=== PATIENT | male | born 1935 | race Caucasian/White ===

== ENCOUNTER 2022-03-10 23:04 | Emergency (ER) | payer OTHER ==
[2022-03-10] MEDS ORDERED: ACETAMINOPHEN 500 MG TABLET (FP) PO ONE (23:27)
[2022-03-10] MEDS ORDERED: ACETAMINOPHEN 325 MG TABLET (FP) PO ONE (23:28)
[2022-03-10] MEDS ORDERED: ACETAMINOPHEN 325 MG TABLET (FP) ONE (23:29)
[2022-03-10 23:40] VITALS: BMI 26.2
[2022-03-10] MEDS ORDERED: LIDOCAINE HCL 2% JELLY (5 ML/TUBE) ONE (23:40)
[2022-03-11 01:32] LABS: EPI CELLS 1 /uL (0-25.1); HYALINE CASTS 0 /uL (0-3.1); URINE APPEARANCE CLOUDY; URINE BACTERIA 874 /uL (0-1359); URINE BILIRUBIN NEGATIVE (NEGATIVE); URINE COLOR YELLOW; URINE GLUCOSE (UA) NEGATIVE (NEGATIVE); URINE KETONE NEGATIVE (NEGATIVE); URINE LEUK ESTERASE 3+ (NEGATIVE); URINE NITRITE NEGATIVE (NEGATIVE); URINE PROTEIN 1+ (NEGATIVE); URINE UROBILINOGEN 0.2 mg/dL (0.2-1.0); URINE WBC 1379 /uL (0-25.8)
[2022-03-11 03:53] VITALS: BP 92/65; PULSE 84; TEMP 98.6
[2022-03-11 03:58] LABS: URINE RBC 159 /uL (0-23.9); YEAST MODERATE (NEGATIVE)
== END 2022-03-11 04:28 ==
LOC: FER 23:04
DX: T83.018A Breakdown (mechanical) of other urinary catheter, initial encounter (principal)
CPT/HCPCS: 81003; 87086; 87186; 99283-25

== ENCOUNTER 2022-04-03 14:09 | Inpatient (IN) | payer OTHER, BC ==
[2022-04-03] MEDS ORDERED: ACETAMINOPHEN 1000 MG/100 ML BAG IVPB ONE (15:50)
[2022-04-03] MEDS ORDERED: ACETAMINOPHEN 325 MG TABLET (FP) ONE (15:51)
[2022-04-03] MEDS ORDERED: ACETAMINOPHEN INJECTION 100 ML IVPB ONE (15:52)
[2022-04-03] MEDS ORDERED: morphine CARPU-JECT 4 MG/1 ML DISP.SYRIN IVPUSH ONE (17:30)
[2022-04-03] MEDS ORDERED: morphine SULFATE 4 MG/ML VIAL ONE (17:34)
[2022-04-03 17:42] LABS: BASO % 0.3 % (0-2.0); EOS % 1.1 % (0-4.5); HEMOGLOBIN 11.6 GM/dL (11.7-16.9); MCH 28.2 pg (25.7-33.7); MCHC 33.2 g/dl (32.0-35.9); MEAN CELL VOLUME 84.8 fl (80-96); MEAN PLT VOLUME 7.4 fl (7.5-11.1); MONO % 10.6 % (3.8-10.2); PLATELET COUNT 181 10^3/uL (134-434); RBC 4.13 M/mm3 (4.00-5.60); RDW 21.9 % (11.9-15.9)
[2022-04-03 18:00] LABS: INR 1.05 (0.83-1.09); PROTHROMBIN TIME (PATIENT) 12.1 SEC (9.7-13.0)
[2022-04-03 18:03] LABS: ACTIVATED PTT 29.8 SECONDS (25.2-36.5)
[2022-04-03 18:11] LABS: ALBUMIN 3.4 g/dl (3.4-5.0); BLOOD UREA NITROGEN 30.1 mg/dL (7-18)
[2022-04-03 18:14] LABS: CREATININE 1.4 mg/dL (0.55-1.3)
[2022-04-03 18:16] LABS: BILIRUBIN,TOTAL 0.6 mg/dL (0.2-1); TOT PROT 7.2 g/dl (6.4-8.2)
[2022-04-03] MEDS ORDERED: SODIUM CHLORIDE 1,000 ML IV SCH (18:30)
[2022-04-03] MEDS ORDERED: CEFTRIAXONE 1,000 MG in DEXTROSE 5%-WATER - 50 ML IVPB ONE (18:31)
[2022-04-03] MEDS ORDERED: CEFTRIAXONE 1 GM/50 ML BAG ONE (18:38)
[2022-04-03 19:06] LABS: ANISOCYTOSIS 1+; MACROCYTOSIS 0
[2022-04-03 20:49] LABS: PH,URINE 8.5 (5.0-8.0); URINE APPEARANCE Turbid; URINE BILIRUBIN 3+ (NEGATIVE); URINE COLOR Other; URINE GLUCOSE (UA) Trace (NEGATIVE); URINE KETONE 3+ (NEGATIVE); URINE LEUK ESTERASE 3+ (NEGATIVE); URINE NITRITE Positive (NEGATIVE); URINE PROTEIN 3+ (NEGATIVE); URINE UROBILINOGEN >=8.0 E.U./dl mg/dL (0.2-1.0)
[2022-04-03] MEDS ORDERED: NITROGLYCERIN SUBLINGUAL 1/150 0.4 MG TAB SL PRN (23:10)
[2022-04-04 03:05] VITALS: BMI 26.0
[2022-04-04] MEDS ORDERED: VANCOMYCIN/WATER 1,250 MG/250 ML BAG IVPB SCH (03:45)
[2022-04-04] MEDS ORDERED: PIPERACILLIN/TAZOB 3.375 GM 3.375 GM in DEXTROSE 5%-WATER - 50 ML IVPB SCH ×2 (04:00→10:00)
[2022-04-04] MEDS ORDERED: VANCOMYCIN/WATER 1250 MG 1,250 MG/250 ML BAG IVPB SCH (04:00)
[2022-04-04] MEDS ORDERED: PIPERACILLIN/TAZOBACTAM 3.375 GM VIAL IVPB ONE ×3 (05:32→20:55)
[2022-04-04] MEDS ORDERED: DEXTROSE 5%-WATER - 50 ML IVPB ONE ×3 (05:32→20:55)
[2022-04-04] MEDS ORDERED: LEVOTHYROXINE NA 112 MCG TABLET (FP) ONE (06:19)
[2022-04-04] MEDS ORDERED: LEVOTHYROXINE NA 25 MCG TABLET (FP) ONE (06:19)
[2022-04-04] MEDS: LEVOTHYROXINE 112 MCG, LEVOTHYROXINE 25 MCG PO SCH (06:20)
[2022-04-04] MEDS: SODIUM CHLORIDE 1,000 ML IV SCH ×3 (06:21→22:53)
[2022-04-04] MEDS: TAMSULOSIN HCL 0.4 MG CAP PO SCH (08:21)
[2022-04-04] MEDS ORDERED: LEVOTHYROXINE NA 75 MCG TABLET (FP) PO SCH (10:00)
[2022-04-04] MEDS ORDERED: ASPIRIN 81 MG CHEWABLE TABLETS PO SCH (10:00)
[2022-04-04] MEDS: CHOLECALCIFEROL (VIT D3) 1,000 UNIT (25 MCG) TABLET PO SCH (10:24)
[2022-04-04] MEDS: FINASTERIDE 5 MG TABLET (FP) PO SCH (10:24)
[2022-04-04] MEDS: POLYETHYLENE GLYCOL (HEALTHYLAX) 3350 17 GM PACKET PO SCH (10:24)
[2022-04-04] MEDS: FOLIC ACID 1 MG TABLET (FP) PO SCH (10:24)
[2022-04-04 10:57] LABS: BASO % 0.4 % (0-2.0); EOS % 1.7 % (0-4.5); HEMATOCRIT 30.4 % (35.4-49); HEMOGLOBIN 10.1 GM/dL (11.7-16.9); LYMPH % 7.1 % (8-40); MCH 28.1 pg (25.7-33.7); MCHC 33.2 g/dl (32.0-35.9); MEAN CELL VOLUME 84.6 fl (80-96); MEAN PLT VOLUME 7.4 fl (7.5-11.1); NEUT % 79.8 % (42.8-82.8); PLATELET COUNT 167 10^3/uL (134-434); RBC 3.59 M/mm3 (4.00-5.60); RDW 22.2 % (11.9-15.9); WHITE BLOOD COUNT 8.4 K/mm3 (4.0-10.0)
[2022-04-04] MEDS: AMIODARONE HCL 200 MG TABLET PO SCH (11:12)
[2022-04-04] MEDS: CYANOCOBALAMIN 1,000 MCG TABLET (FP) PO SCH (11:12)
[2022-04-04 11:27] LABS: CALCIUM 8.7 mg/dL (8.5-10.1)
[2022-04-04 11:28] LABS: ALBUMIN 2.8 g/dl (3.4-5.0); BLOOD UREA NITROGEN 26.4 mg/dL (7-18); MAGNESIUM 2.2 mg/dL (1.8-2.4)
[2022-04-04 11:29] LABS: BILIRUBIN,TOTAL 0.6 mg/dL (0.2-1); TOT PROT 6.2 g/dl (6.4-8.2)
[2022-04-04 11:31] LABS: CREATININE 1.4 mg/dL (0.55-1.3); PHOSPHOROUS 3.6 mg/dL (2.5-4.9)
[2022-04-04] MEDS: PIPERACILLIN/TAZOB 3.375 GM 3.375 GM in DEXTROSE 5%-WATER - 50 ML IVPB SCH ×2 (14:17→21:19)
[2022-04-04] MEDS ORDERED: CEFTRIAXONE 1 GM in DEXTROSE 5%-WATER - 50 ML IVPB SCH (18:30)
[2022-04-04] MEDS: MELATONIN 5 MG TABLETS PO SCH (21:22)
[2022-04-04] MEDS: ATORVASTATIN CA 40 MG TABLET (FP) PO SCH (21:22)
[2022-04-04] MEDS: FAMOTIDINE 20 MG TABLET PO SCH (21:22)
[2022-04-05] MEDS ORDERED: LEVOTHYROXINE NA 25 MCG TABLET (FP) ONE (05:11)
[2022-04-05] MEDS ORDERED: LEVOTHYROXINE NA 112 MCG TABLET (FP) ONE (05:11)
[2022-04-05] MEDS ORDERED: PIPERACILLIN/TAZOBACTAM 3.375 GM VIAL IVPB ONE ×3 (05:12→22:30)
[2022-04-05] MEDS ORDERED: DEXTROSE 5%-WATER - 50 ML IVPB ONE ×3 (05:12→22:30)
[2022-04-05] MEDS: PIPERACILLIN/TAZOB 3.375 GM 3.375 GM in DEXTROSE 5%-WATER - 50 ML IVPB SCH ×3 (05:27→22:34)
[2022-04-05] MEDS: LEVOTHYROXINE 112 MCG, LEVOTHYROXINE 25 MCG PO SCH (06:24)
[2022-04-05] MEDS: FOLIC ACID 1 MG TABLET (FP) PO SCH (10:39)
[2022-04-05] MEDS: FINASTERIDE 5 MG TABLET (FP) PO SCH (10:39)
[2022-04-05] MEDS: CHOLECALCIFEROL (VIT D3) 1,000 UNIT (25 MCG) TABLET PO SCH (10:39)
[2022-04-05] MEDS: TAMSULOSIN HCL 0.4 MG CAP PO SCH (10:39)
[2022-04-05] MEDS: AMIODARONE HCL 200 MG TABLET PO SCH (10:40)
[2022-04-05] MEDS: CYANOCOBALAMIN 1,000 MCG TABLET (FP) PO SCH (10:40)
[2022-04-05] MEDS: POLYETHYLENE GLYCOL (HEALTHYLAX) 3350 17 GM PACKET PO SCH (10:40)
[2022-04-05] MEDS: ACETAMINOPHEN 325 MG TABLET (FP) PO PRN (10:42)
[2022-04-05] MEDS: SODIUM CHLORIDE 1,000 ML IV SCH ×2 (13:28→22:32)
[2022-04-05] MEDS: MELATONIN 5 MG TABLETS PO SCH (22:33)
[2022-04-05] MEDS: ATORVASTATIN CA 40 MG TABLET (FP) PO SCH (22:33)
[2022-04-05] MEDS: FAMOTIDINE 20 MG TABLET PO SCH (22:34)
[2022-04-06] MEDS ORDERED: LEVOTHYROXINE NA 112 MCG TABLET (FP) ONE (06:03)
[2022-04-06] MEDS ORDERED: LEVOTHYROXINE NA 25 MCG TABLET (FP) ONE (06:03)
[2022-04-06] MEDS ORDERED: DEXTROSE 5%-WATER - 50 ML IVPB ONE ×3 (06:03→21:46)
[2022-04-06] MEDS ORDERED: PIPERACILLIN/TAZOBACTAM 3.375 GM VIAL IVPB ONE ×3 (06:03→21:46)
[2022-04-06] MEDS: LEVOTHYROXINE 112 MCG, LEVOTHYROXINE 25 MCG PO SCH (06:17)
[2022-04-06] MEDS: PIPERACILLIN/TAZOB 3.375 GM 3.375 GM in DEXTROSE 5%-WATER - 50 ML IVPB SCH ×3 (06:17→22:28)
[2022-04-06] MEDS: FOLIC ACID 1 MG TABLET (FP) PO SCH (09:39)
[2022-04-06] MEDS: TAMSULOSIN HCL 0.4 MG CAP PO SCH (09:39)
[2022-04-06] MEDS: AMIODARONE HCL 200 MG TABLET PO SCH (09:39)
[2022-04-06] MEDS: CHOLECALCIFEROL (VIT D3) 1,000 UNIT (25 MCG) TABLET PO SCH (09:39)
[2022-04-06] MEDS: CYANOCOBALAMIN 1,000 MCG TABLET (FP) PO SCH (09:39)
[2022-04-06] MEDS: POLYETHYLENE GLYCOL (HEALTHYLAX) 3350 17 GM PACKET PO SCH (09:40)
[2022-04-06] MEDS: FINASTERIDE 5 MG TABLET (FP) PO SCH (09:44)
[2022-04-06] MEDS: ACETAMINOPHEN 325 MG TABLET (FP) PO PRN (09:45)
[2022-04-06] MEDS: SODIUM CHLORIDE 1,000 ML IV SCH ×2 (14:11→22:09)
[2022-04-06] MEDS: MELATONIN 5 MG TABLETS PO SCH (22:07)
[2022-04-06] MEDS: ATORVASTATIN CA 40 MG TABLET (FP) PO SCH (22:08)
[2022-04-06] MEDS: FAMOTIDINE 20 MG TABLET PO SCH (22:08)
[2022-04-07] MEDS: ACETAMINOPHEN 325 MG TABLET (FP) PO PRN ×2 (03:56→10:10)
[2022-04-07] MEDS ORDERED: DEXTROSE 5%-WATER - 50 ML IVPB ONE ×3 (05:38→20:59)
[2022-04-07] MEDS ORDERED: PIPERACILLIN/TAZOBACTAM 3.375 GM VIAL IVPB ONE ×3 (05:38→20:59)
[2022-04-07] MEDS: PIPERACILLIN/TAZOB 3.375 GM 3.375 GM in DEXTROSE 5%-WATER - 50 ML IVPB SCH ×3 (06:05→21:20)
[2022-04-07] MEDS ORDERED: LEVOTHYROXINE NA 25 MCG TABLET (FP) ONE (06:07)
[2022-04-07] MEDS ORDERED: LEVOTHYROXINE NA 112 MCG TABLET (FP) ONE (06:07)
[2022-04-07] MEDS: LEVOTHYROXINE 112 MCG, LEVOTHYROXINE 25 MCG PO SCH (06:09)
[2022-04-07] MEDS: TAMSULOSIN HCL 0.4 MG CAP PO SCH (09:10)
[2022-04-07 10:01] LABS: BASO % 0.2 % (0-2.0); EOS % 3.3 % (0-4.5); HEMATOCRIT 30.7 % (35.4-49); HEMOGLOBIN 10.1 GM/dL (11.7-16.9); LYMPH % 7.3 % (8-40); MEAN CELL VOLUME 84.9 fl (80-96); MEAN PLT VOLUME 7.6 fl (7.5-11.1); MONO % 11.2 % (3.8-10.2); PLATELET COUNT 193 10^3/uL (134-434); RBC 3.61 M/mm3 (4.00-5.60); RDW 21.8 % (11.9-15.9); WHITE BLOOD COUNT 9.9 K/mm3 (4.0-10.0)
[2022-04-07] MEDS: CHOLECALCIFEROL (VIT D3) 1,000 UNIT (25 MCG) TABLET PO SCH (10:10)
[2022-04-07] MEDS: FOLIC ACID 1 MG TABLET (FP) PO SCH (10:10)
[2022-04-07] MEDS: FINASTERIDE 5 MG TABLET (FP) PO SCH (10:10)
[2022-04-07] MEDS: CYANOCOBALAMIN 1,000 MCG TABLET (FP) PO SCH (10:11)
[2022-04-07] MEDS: AMIODARONE HCL 200 MG TABLET PO SCH (10:11)
[2022-04-07] MEDS: POLYETHYLENE GLYCOL (HEALTHYLAX) 3350 17 GM PACKET PO SCH (10:11)
[2022-04-07 10:23] LABS: ALBUMIN 2.8 g/dl (3.4-5.0); ANISOCYTOSIS 1+; BLOOD UREA NITROGEN 22.5 mg/dL (7-18); CALCIUM 8.6 mg/dL (8.5-10.1)
[2022-04-07 10:25] LABS: CREATININE 1.6 mg/dL (0.55-1.3)
[2022-04-07 10:27] LABS: BILIRUBIN,TOTAL 0.9 mg/dL (0.2-1); TOT PROT 6.5 g/dl (6.4-8.2)
[2022-04-07] MEDS: SODIUM CHLORIDE 1,000 ML IV SCH ×2 (15:35→22:30)
[2022-04-07] MEDS: MELATONIN 5 MG TABLETS PO SCH (21:21)
[2022-04-07] MEDS: ATORVASTATIN CA 40 MG TABLET (FP) PO SCH (21:21)
[2022-04-07] MEDS: FAMOTIDINE 20 MG TABLET PO SCH (21:21)
[2022-04-08] MEDS ORDERED: DEXTROSE 5%-WATER - 50 ML IVPB ONE ×3 (05:31→21:19)
[2022-04-08] MEDS ORDERED: PIPERACILLIN/TAZOBACTAM 3.375 GM VIAL IVPB ONE ×3 (05:31→21:19)
[2022-04-08] MEDS ORDERED: LEVOTHYROXINE NA 112 MCG TABLET (FP) ONE (05:32)
[2022-04-08] MEDS ORDERED: LEVOTHYROXINE NA 25 MCG TABLET (FP) ONE (05:32)
[2022-04-08] MEDS: PIPERACILLIN/TAZOB 3.375 GM 3.375 GM in DEXTROSE 5%-WATER - 50 ML IVPB SCH ×3 (05:35→21:40)
[2022-04-08] MEDS: LEVOTHYROXINE 112 MCG, LEVOTHYROXINE 25 MCG PO SCH (06:07)
[2022-04-08 08:43] LABS: BASO % 0.5 % (0-2.0); EOS % 2.8 % (0-4.5); HEMOGLOBIN 9.3 GM/dL (11.7-16.9); LYMPH % 8.6 % (8-40); MCH 27.8 pg (25.7-33.7); MCHC 33.1 g/dl (32.0-35.9); MEAN CELL VOLUME 84.2 fl (80-96); MEAN PLT VOLUME 7.4 fl (7.5-11.1); MONO % 13.8 % (3.8-10.2); NEUT % 74.3 % (42.8-82.8); PLATELET COUNT 193 10^3/uL (134-434); RBC 3.33 M/mm3 (4.00-5.60)
[2022-04-08] MEDS: TAMSULOSIN HCL 0.4 MG CAP PO SCH (09:19)
[2022-04-08] MEDS: FINASTERIDE 5 MG TABLET (FP) PO SCH (09:19)
[2022-04-08] MEDS: POLYETHYLENE GLYCOL (HEALTHYLAX) 3350 17 GM PACKET PO SCH (09:19)
[2022-04-08] MEDS: FOLIC ACID 1 MG TABLET (FP) PO SCH (09:19)
[2022-04-08] MEDS: CHOLECALCIFEROL (VIT D3) 1,000 UNIT (25 MCG) TABLET PO SCH (09:19)
[2022-04-08] MEDS: CYANOCOBALAMIN 1,000 MCG TABLET (FP) PO SCH (09:20)
[2022-04-08] MEDS: AMIODARONE HCL 200 MG TABLET PO SCH (09:20)
[2022-04-08 09:26] LABS: ALBUMIN 2.5 g/dl (3.4-5.0); BLOOD UREA NITROGEN 21.1 mg/dL (7-18); CALCIUM 8.4 mg/dL (8.5-10.1)
[2022-04-08 09:29] LABS: CREATININE 1.5 mg/dL (0.55-1.3)
[2022-04-08 09:31] LABS: BILIRUBIN,TOTAL 1.1 mg/dL (0.2-1)
[2022-04-08] MEDS: ASPIRIN 81 MG CHEWABLE TABLETS PO SCH (12:32)
[2022-04-08] MEDS: SODIUM CHLORIDE 1,000 ML IV SCH ×2 (17:52→20:57)
[2022-04-08] MEDS: FAMOTIDINE 20 MG TABLET PO SCH (21:41)
[2022-04-08] MEDS: MELATONIN 5 MG TABLETS PO SCH (21:41)
[2022-04-08] MEDS: ATORVASTATIN CA 40 MG TABLET (FP) PO SCH (21:41)
[2022-04-09] MEDS ORDERED: LEVOTHYROXINE NA 25 MCG TABLET (FP) ONE (05:09)
[2022-04-09] MEDS ORDERED: LEVOTHYROXINE NA 112 MCG TABLET (FP) ONE (05:10)
[2022-04-09] MEDS ORDERED: PIPERACILLIN/TAZOBACTAM 3.375 GM VIAL IVPB ONE ×2 (05:10→13:22)
[2022-04-09] MEDS ORDERED: DEXTROSE 5%-WATER - 50 ML IVPB ONE ×2 (05:10→13:22)
[2022-04-09] MEDS: PIPERACILLIN/TAZOB 3.375 GM 3.375 GM in DEXTROSE 5%-WATER - 50 ML IVPB SCH ×2 (05:28→13:27)
[2022-04-09] MEDS: LEVOTHYROXINE 112 MCG, LEVOTHYROXINE 25 MCG PO SCH (06:01)
[2022-04-09] MEDS: ASPIRIN 81 MG CHEWABLE TABLETS PO SCH (09:54)
[2022-04-09] MEDS: FINASTERIDE 5 MG TABLET (FP) PO SCH (09:54)
[2022-04-09] MEDS: FOLIC ACID 1 MG TABLET (FP) PO SCH (09:54)
[2022-04-09] MEDS: TAMSULOSIN HCL 0.4 MG CAP PO SCH (09:54)
[2022-04-09] MEDS: CHOLECALCIFEROL (VIT D3) 1,000 UNIT (25 MCG) TABLET PO SCH (09:54)
[2022-04-09] MEDS: AMIODARONE HCL 200 MG TABLET PO SCH (09:54)
[2022-04-09] MEDS: CYANOCOBALAMIN 1,000 MCG TABLET (FP) PO SCH (09:54)
[2022-04-09] MEDS: POLYETHYLENE GLYCOL (HEALTHYLAX) 3350 17 GM PACKET PO SCH (09:54)
[2022-04-09 10:47] LABS: BASO % 0.4 % (0-2.0); EOS % 2.9 % (0-4.5); HEMATOCRIT 30.3 % (35.4-49); HEMOGLOBIN 9.9 GM/dL (11.7-16.9); LYMPH % 7.2 % (8-40); MCH 27.5 pg (25.7-33.7); MCHC 32.5 g/dl (32.0-35.9); MEAN CELL VOLUME 84.6 fl (80-96); MEAN PLT VOLUME 7.1 fl (7.5-11.1); MONO % 12.3 % (3.8-10.2); NEUT % 77.2 % (42.8-82.8); PLATELET COUNT 211 10^3/uL (134-434); RBC 3.58 M/mm3 (4.00-5.60); RDW 21.7 % (11.9-15.9); WHITE BLOOD COUNT 9.1 K/mm3 (4.0-10.0)
[2022-04-09 11:09] LABS: ALBUMIN 2.4 g/dl (3.4-5.0); BLOOD UREA NITROGEN 20.5 mg/dL (7-18); CALCIUM 8.6 mg/dL (8.5-10.1)
[2022-04-09 11:12] LABS: CREATININE 1.4 mg/dL (0.55-1.3)
[2022-04-09 11:14] LABS: BILIRUBIN,TOTAL 0.6 mg/dL (0.2-1); TOT PROT 6.1 g/dl (6.4-8.2)
[2022-04-09 14:40] VITALS: BP 100/63; PULSE 76; TEMP 97.6
[2022-04-10] MEDS ORDERED: EPOETIN ALFA-EPBX 4,000 UNIT/ML VIAL SQ SCH (10:00)
== END 2022-04-09 21:59 | DRG 699 ==
LOC: JER 14:09 → JERBED 18:32 → OBSVTOIN 21:41 → J6S 04-04 02:38
PROVIDERS: ADMIT Hospitalist; ATTEND Internal Medicine
PROC: 0HBRXZZ Excision of Toe Nail, External Approach (ICD-10-PCS; principal; 2022-04-08)
DX: T83.511A Infection and inflammatory reaction due to indwelling urethral catheter, initial encounter (principal); I13.0 Hypertensive heart and chronic kidney disease with heart failure and stage 1 through stage 4 chronic kidney disease, or unspecified chronic kidney disease; N17.9 Acute kidney failure, unspecified; N39.0 Urinary tract infection, site not specified; R33.9 Retention of urine, unspecified; N40.0 Benign prostatic hyperplasia without lower urinary tract symptoms; I48.91 Unspecified atrial fibrillation; I50.9 Heart failure, unspecified; E78.5 Hyperlipidemia, unspecified; E03.9 Hypothyroidism, unspecified; B96.5 Pseudomonas (aeruginosa) (mallei) (pseudomallei) as the cause of diseases classified elsewhere; B35.1 Tinea unguium; N18.30 Chronic kidney disease, stage 3 unspecified; I25.10 Atherosclerotic heart disease of native coronary artery without angina pectoris; R31.0 Gross hematuria; Y83.9 Surgical procedure, unspecified as the cause of abnormal reaction of the patient, or of later complication, without mention of misadventure at the time of the procedure; Q54.9 Hypospadias, unspecified
CPT/HCPCS: 36415; 71045-TC-FY; 73630-TC-LT; 76856-TC; 80053; 81003; 83735; 84100; 84443; 85025; 85610; 85730; 87086; 87186; 93005; 93010; 97116-GP; 97162-GP; 99285-25; C9803-CS; G0378; U0003; U0005